=== PATIENT | female | born 1955 | race African-American/Black ===

== ENCOUNTER 2016-06-15 10:38 | Emergency (ER) | payer OTHER ==
[2016-06-15 10:45] VITALS: BMI 35.3
--- NOTE | 2016-06-15 12:04 | PDOC ---
History of Present Illness <Anna Marie Henderson - Last Filed: 06/15/16 14:05> - History of Present Illness Initial Comments: 06/15/16 12:23 History of Present Illness <Kaylyn Barreto - Last Filed: 06/15/16 12:10> - History of Present Illness Initial Comments: The patient is a 61 year old female with a past medical hx of AODM, chronic back pain with sciatica, and hyperlipidemia who presents to the ED complaining of pain to her neck and clavicle for nine days. She reports she had an echo performed on 06/06/16 and felt the onset of the pain when she was getting up from the table. The patient is having pain to her left medial supraclavicular area, radiating into the left neck and up into her jaw. She states she has been having pain since the echo. She notes she did not have a carotid echo performed. She reports the pain is exacerbated with reaching, bending, and turning her neck. The patient denies a cardiac history. The patient denies double vision, blurred vision The patient denies chest pain, SOB The patient denies fever, chills She denies any other complaints at this time, and the remainder the review of systems is negative Allergies: Codeine Social: No alcohol, tobacco, drug use reported PCP: Dr. Watkins <Anna Marie Henderson - Last Filed: 06/15/16 12:23> 06/15/16 12:28 <Kaylyn Barreto - Last Filed: 06/15/16 16:05> - General Chief Complaint: Pain, Acute Stated Complaint: NECK PAIN Time Seen by Provider: 06/15/16 11:47 Past History <Anna Marie Henderson - Last Filed: 06/15/16 14:05> - Past Medical History Diabetes: Yes HTN: Yes Hypercholesterolemia: Yes - Immunization History Immunization Up to Date: No - Psycho/Social/Smoking Cessation Hx Anxiety: No Suicidal Ideation: No Smoking History: Never smoked Have you smoked in the past 12 months: No Information on smoking cessation initiated: No Hx Alcohol Use: No Drug/Substance Use Hx: No <Kaylyn Barreto - Last Filed: 06/15/16 16:05> - Past Medical History Allergies/Adverse Reactions: Allergies Allergy/AdvReac Type Severity Reaction Status Date / Time codeine Allergy Verified 06/15/16 10:41 Home Medications: Ambulatory Orders Metformin HCl [Glucophage -] 500 mg PO DAILY 09/07/13 Oxycodone HCl/Acetaminophen [Percocet 5-325 mg Tablet -] 1 combo PO TID PRN 03/13 Pravastatin Sodium [Pravachol -] 10 mg PO HS 09/07/13 Methocarbamol [Robaxin -] 500 mg PO BID #14 tablet 09/08/13 Review of Systems - Review of Systems Able to Perform ROS?: Yes Comments:: 06/15/16 13:58 Remainder of the review of systems is negative - HPI 12 point review of systems is as per history of present illness and otherwise negative <Anna Marie Henderson - Last Filed: 06/15/16 14:05> *Physical Exam - Vital Signs Last Vital Signs Temp Pulse Resp BP Pulse Ox 98.7 F 97 H 20 157/85 100 06/15/16 10:41 06/15/16 10:41 06/15/16 10:41 06/15/16 10:41 06/15/16 10:41 <Anna Marie Henderson - Last Filed: 06/15/16 14:05> - Vital Signs Last Vital Signs Temp Pulse Resp BP Pulse Ox 98.7 F 97 H 20 157/85 100 06/15/16 10:41 06/15/16 10:41 06/15/16 10:41 06/15/16 10:41 06/15/16 10:41 - Physical Exam Comments: 06/15/16 12:12 Physical exam Last Vital Signs Temp Pulse Resp BP Pulse Ox 98.7 F 97 H 20 157/85 100 06/15/16 10:41 06/15/16 10:41 06/15/16 10:41 06/15/16 10:41 06/15/16 10:41 GENERAL: The patient is awake, alert, and fully oriented, and in no apparent distress. HEAD: Normal with no signs of trauma. EYES: Pupils equal, round and reactive to light, extraocular movements intact, sclera anicteric, conjunctiva are normal. No evidence of Guillermo,s syndrome ENT: nares patent, oropharynx clear without exudates. Moist mucous membranes. NECK: Normal range of motion, supple There is no C-spine tenderness There is mild tenderness in the left medial supraclavicular space, and into the lateral neck muscles, There is no neck swelling or lymphadenopathy felt There is no lateral trapezius tenderness There is no mastoid tenderness or ear tenderness LUNGS: Breath sounds equal, clear to auscultation bilaterally. No wheezes, and no crackles. HEART: Regular rate and rhythm, normal S1 and S2 without murmur, rub or gallop. ABDOMEN: Soft, nontender, normoactive bowel sounds. No guarding, no rebound. No masses appreciated. EXTREMITIES: Normal range of motion, no edema. No clubbing or cyanosis. No cords, erythema, or tenderness. NEUROLOGICAL: Cranial nerves II through XII grossly intact. Normal speech, normal gait. PSYCH: Normal mood, normal affect. SKIN: Warm, Dry, normal turgor, no rashes or lesions noted. <Kaylyn Barreto - Last Filed: 06/15/16 16:05> ED Treatment Course - RADIOLOGY Radiology Studies Ordered: Category Date Time Status CHEST PA & LAT [RAD] Stat Radiology 06/15/16 12:02 Ordered SPINE-CERVICAL [RAD] Stat Radiology 06/15/16 12:02 Ordered CAROTID COLOR FLOW DOPP US [US] Stat Ultrasound 06/15/16 12:01 Ordered <Kaylyn Barreto - Last Filed: 06/15/16 16:05> Medical Decision Making - Medical Decision Making 06/15/16 12:10 61-year-old female with a past medical history of chronic back issues with sciatica, AODM, and hyperlipidemia Patient states that she recently switched to a new doctor, ordered a cardiac echo on her which was done on 06/06 She states soon as she got up off the table from the echo, she developed pain in her left medial supraclavicular area, radiating into the left neck and up into her jaw, which she has had since the echo She states the pain is worse when she bends to tie her shoes, and turns her head from side to side or twists She states that she also occasionally feels "funny in the left side of her head ", but she states that she had that prior to having a cardiac echo She denies any associated nausea vomiting or diarrhea She denies any chest pain or shortness of breath She states that she only had a cardiac echo, and did not have a carotid echo/US She denies any recent involvement in an MVA She denies any other complaints at this time, and the remainder the review of systems is negative 06/15/16 12:14 Possibly musculoskeletal pain from getting up from the echo table and twisting Will check x-rays and carotid echo 06/15/16 15:13 Carotid echo/ultrasound No atherosclerotic plaque is seen Doppler velocity measurements are normal Forward flow was present in both vertebral arteries Final impression- Normal carotid sonogram with no evidence of dissection or hemodynamically significant stenoses Chest x-ray PA and lateral NAD 06/15/16 15:51 C-spine series Multilevel DJD with bridging and lipping, and disc space narrowing There is also degenerative changes of the visualized costovertebral joints, particularly the first costovertebral joints of the upper thoracic spine Patient states that when she had her echo done and she was moved around, twisted and turned in multiple directions, and the pain started immediately after that. 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 <Anna Marie Henderson - Last Filed: 06/15/16 14:05> <Kaylyn Barreto - Last Filed: 06/15/16 16:05> Diagnosis at time of Disposition: Musculoskeletal neck pain - Discharge Dispostion Disposition: HOME Condition at time of disposition: Good - Referrals Referrals: Ayush Watkins MD [Primary Care Provider] - Omar Bah MD [Staff Physician] - (Neurology-please call today for a follow-up appointment in the next few days) - Patient Instructions Additional Instructions: Warm compresses, rest, Aleve for discomfort Please call today for an appointment with neurology in the next few days Followup with your primary care physician in 24-48 hours Return immediately if you worsen in any way - Post Discharge Activity Work/School Note: Back to Work
[2016-06-15 16:32] VITALS: BP 148/80; PULSE 96; TEMP 97.6
== END 2016-06-15 16:34 | disposition home or self-care (01) ==
LOC: JER 10:38
DX: M54.2 Cervicalgia (principal); M47.892 Other spondylosis, cervical region; I10 Essential (primary) hypertension; E11.9 Type 2 diabetes mellitus without complications; Z79.84 Long term (current) use of oral hypoglycemic drugs; E78.00 Pure hypercholesterolemia, unspecified; E78.5 Hyperlipidemia, unspecified
CPT/HCPCS: 71020-TC; 72050-TC; 93880-TC; 99281-25

== ENCOUNTER 2019-07-22 02:29 | Emergency (ER) | payer OTHER ==
[2019-07-22 03:06] VITALS: BMI 37.8
[2019-07-22 04:03] LABS: BASO % 0.5 % (0-2.0); EOS % 0.6 % (0-4.5); HEMATOCRIT 40.1 % (32.4-45.2); HEMOGLOBIN 13.3 GM/dL (10.7-15.3); LYMPH % 26.4 % (8-40); MCH 29.1 pg (25.7-33.7); MCHC 33.2 g/dl (32.0-36.0); MEAN CELL VOLUME 87.7 fl (80-96); MEAN PLT VOLUME 8.7 fl (7.5-11.1); MONO % 5.4 % (3.8-10.2); NEUT % 67.1 % (42.8-82.8); PLATELET COUNT 204 K/MM3 (134-434); RBC 4.57 M/mm3 (3.60-5.2); RDW 15.8 % (11.6-15.6); WHITE BLOOD COUNT 7.7 K/mm3 (4.0-10.0)
[2019-07-22 04:11] LABS: INR 0.96 (0.83-1.09); PROTHROMBIN TIME (PATIENT) 11.3 SEC (9.7-13.0)
[2019-07-22 05:05] LABS: GLUCOSE,RANDOM 114 mg/dL (74-106)
[2019-07-22 05:06] LABS: CALCIUM 9.2 mg/dL (8.5-10.1); CHLORIDE 106 mmol/L (98-107); CO2 26 mmol/L (21-32); POTASSIUM 4.1 mmol/L (3.5-5.1); SODIUM 141 mmol/L (136-145)
[2019-07-22 05:07] LABS: ALBUMIN 4.2 g/dl (3.4-5.0); ALK PHOS 28 U/L (45-117); BILIRUBIN,TOTAL 0.3 mg/dL (0.2-1); SGOT/AST 20 U/L (15-37); SGPT/ALT 25 U/L (13-61)
[2019-07-22 06:10] VITALS: BP 138/82; PULSE 73; TEMP 97.4
[2019-07-22 06:17] LABS: BLOOD UREA NITROGEN 10.2 mg/dL (7-18); N-TERMINAL BNP 108.1 pg/ml (5-125)
[2019-07-22 07:20] LABS: ANION GAP 9 MMOL/L (8-16)
== END 2019-07-22 09:51 | disposition left against medical advice (07) ==
LOC: JER 02:29
DX: R00.2 Palpitations (principal)
CPT/HCPCS: 36415; 71046-TC-FY; 80053; 82550; 83735; 83880; 84100; 84443; 84484; 85025; 85610; 93005; 93010; 99285-25

== ENCOUNTER 2020-04-05 13:23 | Emergency (ER) | payer OTHER ==
[2020-04-05 13:51] VITALS: BMI 34.0
[2020-04-05 15:49] VITALS: BP 133/70; PULSE 85; TEMP 98.2
== END 2020-04-05 15:45 | disposition home or self-care (01) ==
LOC: JER 13:23
DX: M25.432 Effusion, left wrist (principal)
CPT/HCPCS: 73110-TC-LT-FY; 73130-TC-LT-FY; 99284-25

== ENCOUNTER 2023-01-07 10:21 | Emergency (ER) | payer OTHER ==
[2023-01-07 10:31] VITALS: BP 143/62; PULSE 72; RESP 18; TEMP 97.8; BMI 33.0
[2023-01-07] MEDS ORDERED: ACETAMINOPHEN 500 MG TABLET (FP) PO ONE (11:42)
[2023-01-07] MEDS ORDERED: KETOROLAC TROMETHAMINE 30 MG/1 ML VIAL IM ONE (11:43)
[2023-01-07] MEDS ORDERED: LIDOCAINE 4% PATCH TP ONE (11:43)
[2023-01-07] MEDS ORDERED: LIDOCAINE 5% TOPICAL PATCH TP ONE (11:48)
[2023-01-07] MEDS ORDERED: LIDOCAINE 5% TOPICAL PATCH ONE (11:56)
[2023-01-07] MEDS ORDERED: KETOROLAC TROMETHAMINE 30 MG/1 ML VIAL ONE (11:56)
[2023-01-07] MEDS ORDERED: ACETAMINOPHEN 500 MG TABLET (FP) ONE (11:57)
[2023-01-07] MEDS ORDERED: LIDOCAINE PATCH REMOVAL MC SCH (22:00)
== END 2023-01-07 12:55 | disposition home or self-care (01) ==
LOC: JERFT 10:21 → JER 10:21 → JERFT 12:55
PROC: 3E0233Z Introduction of Anti-inflammatory into Muscle, Percutaneous Approach (ICD-10-PCS; principal; 2023-01-07)
DX: M54.9 Dorsalgia, unspecified (principal)
CPT/HCPCS: 99284-25